=== PATIENT | male | born 1960 | race Caucasian/White ===

== ENCOUNTER 2016-11-01 10:36 | Emergency (ER) | payer OTHER ==
[2016-11-01 10:42] VITALS: TEMP 97.9
[2016-11-01] MEDS ORDERED: NS 1,000 ML IV ONE (11:10)
[2016-11-01] MEDS ORDERED: KETOROLAC 15 MG/1 ML SDV IVP ONE (11:11)
--- NOTE | 2016-11-01 11:14 | EDPHY ---
H & P Stated Complaint: l flank pain/hx of kidney stones Time Seen by Provider: 11/01/16 11:07 HPI/ROS: CHIEF COMPLAINT: Acute left flank pain HISTORY OF PRESENT ILLNESS: The patient presents the ED with complaints of acute left flank pain which began earlier today. The patient has had some mild left back pain over the past 2 weeks which he attributed to a myofascial strain. The patient does report a prior history of nephrolithiasis in his 20s. He did require stent placement x1. The patient has had some dark urine. The patient denies significant past medical history. He takes no regular medications aside from ibuprofen. The patient denies any numbness or weakness in his legs. He has no history of fever. The patient currently states this pain is a 9/10. REVIEW OF SYSTEMS: A comprehensive 10 point review of systems is otherwise negative aside from elements mentioned in the history of present illness. Source: Patient Exam Limitations: No limitations - Personal History Current Tetanus/Diphtheria Vaccine: Unsure - Medical/Surgical History Hx Asthma: No Hx Chronic Respiratory Disease: No Hx Diabetes: No Hx Cardiac Disease: No Hx Renal Disease: No Hx Cirrhosis: No Hx Alcoholism: No Hx HIV/AIDS: No Hx Splenectomy or Spleen Trauma: No Other PMH: Kidney stones - Social History Smoking Status: Never smoked - Physical Exam Exam: General Appearance: Alert, uncomfortable Eyes: Pupils equal and round no pallor or injection ENT, Mouth: Mucous membranes moist Respiratory: There are no retractions, lungs are clear to auscultation Cardiovascular: Regular rate and rhythm Gastrointestinal: Minimal tenderness to palpation left lower quadrant Back: Left CVA tenderness Neurological: A&O, normal motor function, normal sensory exam, normal cranial nerves Skin: Warm and dry, no rashes Musculoskeletal: Neck is supple nontender Extremities: symmetrical, full range of motion Constitutional: Initial Vital Signs Temperature (C) 36.6 C 11/01/16 10:40 Heart Rate 71 11/01/16 10:40 Respiratory Rate 18 11/01/16 10:40 Blood Pressure 143/76 H 11/01/16 10:40 O2 Sat (%) 97 11/01/16 10:40 O2 Delivery Mode Room Air Allergies/Adverse Reactions: Sulfa (Sulfonamide Antibiotics) Allergy (Verified 11/01/16 10:40) Home Medications: Medication Instructions Recorded Ondansetron Odt [Zofran Odt] 4 mg PO Q4PRN PRN #20 tab 11/01/16 Tamsulosin HCl [Flomax] 0.4 mg PO DAILY PRN #15 cap 11/01/16 Xanax 11/01/16 oxyCODONE/APAP 5/325 [Percocet 1 - 2 tab PO Q6-8PRN PRN #20 tab 11/01/16 5/325 (RX)] traMADol 11/01/16 Medical Decision Making - Diagnostics Imaging Results: Imaging Impressions Abdomen/Pelvis CT 11/01/16 11:11 Impression: 1. Bilateral nephrolithiasis, with 6 mm left UPJ calculus, and associated mild- moderate hydronephrosis. 2. Multiple hypodense liver lesions, most likely cysts. Results called to Dr. Asad Garcia at 11:50 AM. Attention: This CT examination is specifically designed to evaluate patients who are clinically suspected of having acute obstructive uropathy. This examination does not use radiographic contrast, and as such, provides only a limited evaluation of the abdomen, pelvis and retroperitoneum. If there is further clinical suspicion for pathological conditions other than obstructive uropathy, a complete CT evaluation of the abdomen and pelvis utilizing intravenous, oral, and rectal contrast should be considered. ED Course/Re-evaluation: The patient presents to the ED with complaints of acute left flank pain. The patient is noted to have hematuria without pyuria. The patient did have an IV established. He has a history of renal colic. Given his several week history of symptoms, a CT scan of the abdomen pelvis was ordered which demonstrates he 6 mm proximal left ureteral stone. The patient also received 0.4 mg of oral Flomax. The remainder of the patient's laboratory studies are unremarkable. I re-evaluated the patient at 12:45 p.m.. He is feeling much better. At this point time he would like to be discharged home. He will be given customary aftercare instructions. The patient is referred to our on-call urologist. He will be discharged home with a prescription for Percocet, Flomax and Zofran. Differential Diagnosis: Differential diagnosis considered includes nephrolithiasis, ureterolithiasis, pyelonephritis, myofascial strain, renal failure - Data Points Laboratory Results: Laboratory Results 11/01/16 10:45 11/01/16 10:45 11/01/16 11/01/16 11/01/16 10:45 10:45 10:45 WBC 7.51 10^3/uL 10^3/uL (3.80-9.50) RBC 5.02 10^6/uL 10^6/uL (4.40-6.38) Hgb 15.7 g/dL g/dL (13.7-17.5) Hct 44.9 % % (40.0-51.0) MCV 89.4 fL fL (81.5-99.8) MCH 31.3 pg pg (27.9-34.1) MCHC 35.0 g/dL g/dL (32.4-36.7) RDW 12.5 % % (11.5-15.2) Plt Count 198 10^3/uL 10^3/uL (150-400) MPV 9.5 fL fL (8.7-11.7) Neut % (Auto) 62.6 % % (39.3-74.2) Lymph % (Auto) 24.2 % % (15.0-45.0) [place] % (Auto) 11.5 % % (4.5-13.0) Eos % (Auto) 0.9 % % (0.6-7.6) Baso % (Auto) 0.5 % % (0.3-1.7) Nucleat RBC Rel Count 0.0 % % (0.0-0.2) Absolute Neuts (auto) 4.70 10^3/uL 10^3/uL (1.70-6.50) Absolute Lymphs (auto) 1.82 10^3/uL 10^3/uL (1.00-3.00) Absolute Monos (auto) 0.86 10^3/uL H 10^3/uL (0.30-0.80) Absolute Eos (auto) 0.07 10^3/uL 10^3/uL (0.03-0.40) Absolute Basos (auto) 0.04 10^3/uL 10^3/uL (0.02-0.10) Absolute Nucleated RBC 0.00 10^3/uL 10^3/uL (0-0.01) Immature Gran % 0.3 % % (0.0-1.1) Immature Gran # 0.02 10^3/uL 10^3/uL (0.00-0.10) Sodium 140 mEq/L mEq/L (134-144) Potassium 4.2 mEq/L mEq/L (3.5-5.2) Chloride 106 mEq/L mEq/L (97-110) Carbon Dioxide 21 mEq/l L mEq/l (22-31) Anion Gap 13 mEq/L mEq/L (8-16) BUN 20 mg/dL mg/dL (7-23) Creatinine 1.2 mg/dL mg/dL (0.7-1.3) Estimated GFR > 60 Glucose 115 mg/dL H mg/dL (70-100) Calcium 9.2 mg/dL mg/dL (8.5-10.4) Urine Color YELLOW Urine Appearance MODERATELY TURBID Urine pH 5.0 (5.0-7.5) Ur Specific [place] 1.019 (1.002-1.030) Urine Protein 1+ H (NEGATIVE) Urine Ketones NEGATIVE (NEGATIVE) Urine Blood 3+ H (NEGATIVE) Urine Nitrate NEGATIVE (NEGATIVE) Urine Bilirubin NEGATIVE (NEGATIVE) Urine Urobilinogen NEGATIVE EU EU (0.2-1.0) Ur Leukocyte Esterase NEGATIVE (NEGATIVE) Urine RBC 50-182 /hpf H /hpf (0-3) Urine WBC NONE SEEN /hpf /hpf (0-3) Ur Epithelial Cells NONE SEEN /lpf /lpf (NONE-1+) Calcium Oxalate Crystal PRESENT /hpf /hpf (NONE-1+) Urine Mucus TRACE /lpf /lpf (NONE-1+) Urine Glucose NEGATIVE (NEGATIVE) Medications Given: Discontinued Medications Sodium Chloride (Ns) 1,000 mls @ 0 mls/hr IV EDNOW ONE; Wide Open PRN Reason: Protocol Stop: 11/01/16 11:11 Last Admin: 11/01/16 11:50 Dose: 1,000 mls Ketorolac Tromethamine (Toradol) 15 mg IVP EDNOW ONE Stop: 11/01/16 11:12 Last Admin: 11/01/16 11:14 Dose: 15 mg Tamsulosin HCl (Flomax) 0.4 mg PO EDNOW ONE Stop: 11/01/16 12:06 Last Admin: 11/01/16 12:13 Dose: 0.4 mg Departure - Departure Disposition: Home, Routine, Self-Care Clinical Impression: Renal colic on left side Condition: Good Instructions: Renal Colic (ED) Additional Instructions: 1. Take Ibuprofen or Motrin 600 mg by mouth three times a day. 2. Percocet as needed for severe pain 3. Flomax as directed 4. Zofran as needed for nausea 5. Strain urine as directed 6. Return to the Emergency Department for intractable pain, fever or vomiting. 7. Followup with the urologist you have been referred to for unimproved symptoms. Referrals: Nadine Mock PA [Primary Care Provider] - As per Instructions Cesar Mann MD [Medical Doctor] - As per Instructions Prescriptions: Ondansetron Odt [Zofran Odt] 4 mg PO Q4PRN PRN #20 tab PRN Reason: For Nausea oxyCODONE/APAP 5/325 [Percocet 5/325 (RX)] 1 - 2 tab PO Q6-8PRN PRN #20 tab PRN Reason: for pain Tamsulosin HCl [Flomax] 0.4 mg PO DAILY PRN #15 cap PRN Reason: for pain
[2016-11-01 11:16] LABS: % IMMATURE GRANULYOCYTES 0.3 % (0.0-1.1); ABSOLUTE IMMATURE GRANULOCYTES 0.02 10^3/uL (0.00-0.10); ADD DIFF? NO; ADD MORPH? NO; ADD SCAN? NO; ATYPICAL LYMPHOCYTE FLAG 0 (0-99); FRAGMENT RBC FLAG 0 (0-99); HEMATOCRIT 44.9 % (40.0-51.0); HEMOGLOBIN 15.7 g/dL (13.7-17.5); LEFT SHIFT FLG 0 (0-99); LIPEMIA HEMOLYSIS FLAG 90 (0-99); MEAN CELL HEMOGLOBIN 31.3 pg (27.9-34.1); MEAN CELL VOLUME 89.4 fL (81.5-99.8); MEAN PLATELET VOLUME 9.5 fL (8.7-11.7); PLATELET CLUMPS FLAG 0 (0-99); PLATELET COUNT 198 10^3/uL (150-400); RED BLOOD CELL COUNT 5.02 10^6/uL (4.40-6.38); RED CELL DISTRIBUTION WIDTH 12.5 % (11.5-15.2)
[2016-11-01 11:23] LABS: COLOR YELLOW; LEUKOCYTE ESTERASE,URINE NEGATIVE (NEGATIVE); NITRITE,URINE NEGATIVE (NEGATIVE)
[2016-11-01 11:26] LABS: MUCUS TRACE /lpf (NONE-1+); RBC,URINE 50-182 /hpf (0-3)
[2016-11-01 11:27] LABS: ANION GAP 13 mEq/L (8-16); CALCIUM 9.2 mg/dL (8.5-10.4); CARBON DIOXIDE 21 mEq/l (22-31); CHLORIDE 106 mEq/L (97-110); CREATININE 1.2 mg/dL (0.7-1.3); GLOMERULAR FILTRATION RATE > 60; GLUCOSE 115 mg/dL (70-100); POTASSIUM 4.2 mEq/L (3.5-5.2); SODIUM 140 mEq/L (134-144); WBC,URINE NONE SEEN /hpf (0-3)
[2016-11-01] MEDS ORDERED: TAMSULOSIN HCL 0.4 MG CAP PO ONE (12:05)
[2016-11-01 12:15] VITALS: BP 123/75; PULSE 64; RESP 16; O2SAT 96
== END 2016-11-01 13:05 | disposition home or self-care (01) ==
DX: N23 Unspecified renal colic (principal)
CPT/HCPCS: 96374; J1885

== ENCOUNTER → 2017-09-20 | Outpatient (CLI) | payer OTHER | LOC: FIMAGING 14:43 | PROVIDERS: ATTEND Urology | DX: R93.41 Abnormal radiologic findings on diagnostic imaging of renal pelvis, ureter, or bladder (principal) ==

== ENCOUNTER → 2017-10-02 | Outpatient (CLI) | payer OTHER | LOC: FIMAGING 08:50 | PROVIDERS: ATTEND Urology | DX: N20.0 Calculus of kidney (principal) ==